=== PATIENT | male | born 1990 | race African-American/Black ===

== ENCOUNTER 2017-06-13 08:09 | Emergency (ER) | payer BC ==
[~2017-06-13] VITALS: Ht 182.9 cm; Wt 81.8 kg
[~2017-06-13 08:09] MED LIST: AMOXICILLIN 50500 MG PO; ATIVAN 0.50.5 MG/TAB PO; NO HOME MEDICATIONS; NORCO 325 MG-51 TAB PO; SEPTRA DS 8001 TAB PO
[2017-06-13 08:13] VITALS: TEMP 98.8
[2017-06-13 09:45] VITALS: BP 122/62; PULSE 64
== END 2017-06-13 09:46 | disposition home or self-care (01) ==
LOC: COL.ER 08:09
DX: R51 Headache (principal); F43.10 Post-traumatic stress disorder, unspecified
CPT/HCPCS: J1200; J1885; J2765; J7030